=== PATIENT | female | born 1990 | race Hispanic/Latino ===

== ENCOUNTER 2021-05-29 11:02 | Inpatient (IN) | payer OTHER, SELFPAY ==
[2021-05-31 16:23] LABS: Urine Appearance CLOUDY (Clear); Urine Bilirubin NEGATIVE (Negative); Urine Blood 1+ (Negative); Urine Color YELLOW (Yellow); Urine Glucose NEGATIVE (Negative); Urine Protein NEGATIVE (Negative); Urine pH 6.5 (5.0-7.0)
[2021-05-31 16:24] LABS: Absolute Lymphocytes (CBC) 1.5 K/uL (0.7-4.9); Basophils % 0.5 % (0-1.3); Hematocrit 37.1 % (36.0-45.0); Lymphocytes % 16.5 % (15.3-44.8); MPV 8.6 fL (7.6-11.3); RBC Red Blood Cell Count 3.82 M/uL (3.86-4.86)
[2021-05-31 16:27] LABS: Protime INR 0.97
[2021-05-31 17:46] LABS: Urine Bacteria LOADED /HPF (<20); Urine RBC <5 /HPF (NONE SEEN)
[2021-06-01] MEDS ORDERED: Ringers Lactate 1,000 ML IV PRN (03:44)
[2021-06-01] MEDS ORDERED: NA CIT/CITRIC AC 30 ML ORAL UDC PO ONE (03:47)
[2021-06-01] MEDS ORDERED: METOCLOPRAMIDE 10 MG/2mL INJ IV SCH (04:00)
[2021-06-01] MEDS ORDERED: CEFAZOLIN 2 GM in NA CHLORIDE 0.9% 100 ML IVPB SCH (04:00)
[2021-06-01 05:28] VITALS: BMI 29.8
[2021-06-01] MEDS: Ringers Lactate 1,000 ML IV SCH ×2 (05:35→11:02)
[2021-06-01] MEDS ORDERED: CEFAZOLIN/SWI 2gm 2 GM/20 ML SYR ONE (06:44)
[2021-06-01] MEDS ORDERED: METHYLERGONOVINE 0.2MG/ML AMP IM ONE (07:00)
[2021-06-01] MEDS ORDERED: LIDOCAINE 1% MPF 5 ML VIAL ONE (07:08)
[2021-06-01] MEDS ORDERED: OXYTOCIN 10 UNIT/ML ML ONE (07:08)
[2021-06-01] MEDS ORDERED: NA CHLORIDE 0.9% IV ONE (07:08)
[2021-06-01] MEDS ORDERED: MORPHINE SULFATE/PF 1 MG/ML (10 ML AMP) ONE (07:08)
[2021-06-01] MEDS ORDERED: CEFAZOLIN IV ONE (07:08)
[2021-06-01] MEDS ORDERED: BUPIVACAINE 0.75% (PF) 2 ML SP ONE (07:09)
[2021-06-01] MEDS ORDERED: EPHEDRINE SULF 50 MG/ML VIAL ONE (07:29)
--- NOTE | 2021-06-01 07:45 | PN ---
The patient is having regular contractions at this point. I think she is in early labor. We would w ant to proceed with the surgery anyway. This is one more now justification for doing the surgery tojovita ay, and the patient has no questions or problems. This morning, she has been seen by Anesthesia. We are preparing for delivery. JOHAN/JULIANNA Voice ID: [id number] Report ID: [id number]
[2021-06-01] MEDS ORDERED: ONDANSETRON 4 MG/2 ML VIAL ONE ×2 (07:52→09:36)
[2021-06-01] MEDS ORDERED: MIDAZOLAM HCL 2 MG/2 ML INJ ONE (07:56)
--- NOTE | 2021-06-01 08:51 | OP ---
Surgeon: Leon Carnes MD Indication: A 31-year-old 4, para 2, previous , scheduled for today, and was noted to be in early labor, 38 weeks 6 days. Full preoperative counseling concerning procedure a nd possible complications including infection; blood loss; anesthetic complications; injury to bladde r, bowel, ureter; postoperative complications; clots in legs, pneumonia. The patient knows full well this does not constitute all the possible problems that could occur during or following surgery. Anesthesia: Spinal block anesthesia, Dr. Proctor and associates. Procedure In Detail: Prepped and draped, time-out performed. Pfannenstiel incision created over the previous incision site. The incision carried to the fascia. The fascia was incised and incision ca rried transversely bilaterally. Anterior and posterior fascial planes were developed with both blunt and sharp dissection. Peritoneum was elevated and entered, very thin lower uterine segment. Low tr ansverse uterine incision created. An 8 pounds 13 ounces female was delivered without difficulties. Apgars 8 and 9. Cord blood specimen obtained. Placenta removed manually. Uterus cleared of clot a nd blood. Cervical os dilated with ring clamp. Uterus closed with a running lock stitch of 1 chromi c. Estimated blood loss, 1000 cc or less. Gutters cleared of clot and blood. Uterus replaced in th e peritoneal cavity. All suture lines were inspected and noted to be intact and without bleeding. M uscles were reapproximated with 0 Vicryl 3 interrupted sutures. The fascia was closed with 1 Vicryl running from either angle to the midline. Subcutaneous tissue closed with 2-0 plain and skin was karen sed with 4-0 Vicryl stitch. The patient has been given 2 g of Ancef prior to the procedure, tolerate d all procedures well, and transferred back to her room in good condition. Final Diagnosis: Term intrauterine 38 weeks 6 days, early labor, repeat section, spinal block anesthesia. JOHAN/JULIANNA Voice ID: [id number] Report ID: [id number]
[2021-06-01] MEDS ORDERED: FAMOTIDINE 20 MG/2 ML VIAL IV SCH (09:00)
[2021-06-01] MEDS ORDERED: DIPHENHYDRAMINE 50 MG/ML VIAL IV PRN (09:32)
[2021-06-01] MEDS ORDERED: ONDANSETRON 4 MG/2 ML VIAL IV PRN (09:34)
[2021-06-01] MEDS ORDERED: Oxycodone HCl/Acetaminophen 1 TAB TAB PO PRN ×2 (14:20)
[2021-06-01] MEDS ORDERED: METHYLERGONOVINE 0.2 MG TAB PO PRN (14:20)
[2021-06-01] MEDS ORDERED: IBUPROFEN 600 MG TAB PO PRN (14:25)
[2021-06-01] MEDS ORDERED: CEFAZOLIN/SWI 2gm 2 GM/20 ML SYR IVP ONE (14:30)
[2021-06-01 16:44] LABS: Hematocrit 34.5 % (36.0-45.0)
[2021-06-01] MEDS ORDERED: Ringers Lactate 1,000 ML IV ONE (17:29)
[2021-06-01] MEDS: OXYTOCIN/LR 20 UNIT/1,000 ML BAG IV SCH (19:45)
[2021-06-02] MEDS: OXYTOCIN/LR 20 UNIT/1,000 ML BAG IV SCH (03:36)
--- NOTE | 2021-06-02 08:06 | PN ---
Postoperatively, patient is doing quite well. Vital signs are all normal. Lochia is normal. No pos t spinal block problems. We will discontinue Vazquez and IV, begin ambulation, begin p.o. intake. The patient has only had Motrin since the time of surgery. Immunizations again discussed. We will obse rve the patient today, send her home tomorrow. She knows to call the office to make an appointment t o come to see me on Saturday next week for inspection of the incision. Right now, though no complai nts or problems and doing exceptionally well. H and H with expected change. JOHAN/MODStanley Voice ID: [id number] Report ID: [id number]
[2021-06-02] MEDS: IBUPROFEN 600 MG TAB PO PRN (15:15)
[2021-06-02 21:12] LABS: RPR (Rapid Plasma Reagin) NON-REACT (NON-REACT)
[2021-06-03] MEDS: IBUPROFEN 600 MG TAB PO PRN (02:28)
--- NOTE | 2021-06-03 07:43 | DS ---
Hospital Course: 31-year-old who underwent repeat section, delivery of an 8 pounds 13 ounce s female, Apgars 8 and 9, 1000 cc or less blood loss. Rh positive, immune to rubella, negative COVID , and negative strep. ; afebrile, ambulating, voiding. Lochia is normal. She has only be en taking Motrin. We will give her some more Motrin to take home with her. She is to call my office Saturday for an appointment on Saturday. Her incision looks good, has been cleaned and we will repla ce the Steri-Strips around there with new Steri-Strips. She has no complaints or problems this morni ng. All of her immunizations have been offered. She has no post spinal block problems. She will co ntinue taking her vitamins and iron. No complaints or problems this morning. Final Diagnosis: Repeat section, spinal block anesthesia. JOHAN/JULIANNA Voice ID: [id number] Report ID: [id number]
[2021-06-03 08:10] VITALS: BP 123/70; TEMP 98.5
[2021-06-04 15:12] LABS: HIV AG/AB 4TH GEN Non-reactive (Non-reactive)
[2021-06-04 23:45] LABS: HBsAG Nonreactive (Nonreactive)
--- NOTE | 2021-06-05 12:30 | PREOPHP ---
Date of Admission: 06/01/2021 History Of Present Illness: Ita Moss 30-year-old 4, para 2, for repeat secti on. The patient will be 39 weeks on Saturday, but my fluoro product development assistant will not be in town and therefor e, we decided to move 1 day and advanced in order to have an expert surgical corsetier, otherwise, I had the operating armored service technician. The patient and family were aware and agreed. We are dealing with a f emale fetus, whose lung should be quite ready at this point. Family had a full preoperative counseli ng concerning infection; blood loss; anesthetic complications; injury to bladder, bowel, ureter; post operative complications; clots in legs and pneumonia. Patient knows fully well. This does not const itute all the possible problems that could occur during or following surgery. Family History: Father with hypertension. The patient has had previous in 2014. Allergies: NO ALLERGIES. Medications: No medicines prior to admission other than vitamins and iron. Social History: Does not smoke. Physical Examination: HEENT: Clear. Pupils are equal, round, reactive to light and accommodation. Conjunctivae well perf used. No oral, lingual, or buccal lesions. Chest and Lungs: Clear. Heart: Without murmurs, thrills, heaves, or rubs. Breasts: Without masses on previous visits. Abdomen: Term size. Baby is vertex, is still -1 to -2 station. Extremities: Clear without edema, cyanosis, or clubbing. Assessment And Plan: Essentially healthy female with repeat section tomorrow morning. She knows to not eat or drink anything past midnight tonight and do her movement counts tonight. Wants stitches rather than elham. JOHAN/JULIANNA Voice ID: [id number]
== END 2021-06-03 09:30 | disposition home or self-care (01) | DRG 788 ==
LOC: L&D 11:02 → EDSTATUS 11:51 → 2ND-WC 06-01 03:40
PROVIDERS: ADMIT Specialist; ATTEND Specialist
PROC: 10D00Z1 Extraction of Products of Conception, Low, Open Approach (ICD-10-PCS; principal; 2021-06-01)
DX: O34.211 Maternal care for low transverse scar from previous cesarean delivery (principal); Z3A.38 38 weeks gestation of pregnancy; Z37.0 Single live birth; Z20.822 Contact with and (suspected) exposure to COVID-19
CPT/HCPCS: 36415; 81001; 85014; 85018; 85025; 85610; 85730; 86592; 86850; 86900; 86901; 87086; 87088; 87340; 87389; 88307; J0690; J1200; J2210; J2250; J2405; J2590; J2765; J7120; U0003